=== PATIENT | male | born 1945 | race Caucasian/White ===

== ENCOUNTER 2021-09-20 07:59 | Inpatient (IN) | payer MEDICARE, BC ==
[~2021-09-20] VITALS: Ht 180.3 cm; Wt 68.9 kg
--- NOTE | 2021-09-20 08:05 | NUR ---
RECEIVED PT CAME BY ROMY FROM [facility] PT AWAKE AND FALLOW SIMPLE COMMAND PT TRANSFER FOR AOLC RESTING AND COMFORATBLE AT THIS TIME
--- NOTE | 2021-09-20 08:10 | NUR ---
BLOOD DROW FOR LAB AND X2 SNDE TO LAB
[2021-09-20 08:20] LABS: BASOPHILS % (AUTO) 0.2 % (0.0-2.0); EOSINOPHILS % (AUTO) 0.1 % (0.0-6.0); HEMATOCRIT 28 % (39-51); HEMOGLOBIN 9.1 g/dL (13.5-17.5); LYMPHOCYTES # (AUTO) 0.3 K/uL (0.8-4.8); LYMPHOCYTES % (AUTO) 3.8 % (20.0-44.0); MEAN CORPUSCULAR HGB CONC 33 g/dl (31.0-36.0); MEAN CORPUSCULAR VOLUME 86 fL (80-96); MONOCYTES # (AUTO) 0.1 K/uL (0.1-1.30); MONOCYTES % (AUTO) 1.4 % (2.0-12.0); NEUTROPHILS # (AUTO) 6.3 K/uL (1.8-8.9); NEUTROPHILS % (AUTO) 94.5 % (43.0-81.0); PLATELET COUNT (AUTO) 300 K/uL (150-450); RED BLOOD CELL COUNT(AUTO) 3.25 MIL/uL (4.5-6.0); WHITE BLOOD COUNT (AUTO) 6.7 K/uL (4.3-11.0)
[2021-09-20] MEDS ORDERED: IV NS 0.9% 1,000 ML BAG IV ONE (08:30)
[2021-09-20] MEDS ORDERED: PIPERACILLIN /TAZOBACTAM 3.375 G in IV D5W 50 ML IV ONE (08:30)
[2021-09-20] MEDS ORDERED: VANCOMYCIN 1 GM in IV D5W 250 ML IV ONE (08:30)
--- NOTE | 2021-09-20 08:30 | NUR ---
UNABLE TO INSRTED FC FR # BY BERTHA PAZ PT HX BPH
[2021-09-20 08:43] LABS: CALCIUM, SERUM 8.5 mg/dL (8.5-10.1); CARBON DIOXIDE 25 mmol/L (21-32); CHLORIDE 104 mmol/L (98-107); CREATININE 1.7 mg/dL (0.6-1.3); GLUCOSE 147 mg/dL (74-106); POTASSIUM 3.8 mmol/L (3.5-5.1); SODIUM SERUM 140 mmol/L (136-145); UREA NITROGEN, BLOOD 18 mg/dL (7-18)
[2021-09-20 08:47] LABS: ALANINE AMINOTRANSFERASE 8 U/L (12-78); ALKALINE PHOSPHATASE 109 U/L (46-116); ASPARTATE AMINOTRANSFERASE 11 U/L (15-37); BILIRUBIN,DIRECT 0.2 mg/dL (0.0-0.2); BILIRUBIN,TOTAL 0.5 mg/dL (0.2-1.0)
[2021-09-20 08:48] LABS: ALBUMIN 2.6 g/dL (3.4-5.0); TOTAL PROTEIN, SERUM 6.8 g/dL (6.4-8.2)
[2021-09-20] MEDS ORDERED: CARB1TAB39 PO (08:53)
[2021-09-20] MEDS ORDERED: METF-881 PO (08:53)
[2021-09-20] MEDS ORDERED: DONE10TA44 PO (08:53)
[2021-09-20] MEDS ORDERED: FENO134C PO (08:53)
[2021-09-20] MEDS ORDERED: ATOR40TA PO (08:53)
[2021-09-20] MEDS ORDERED: FLUT16SP NS (08:53)
[2021-09-20] MEDS ORDERED: CYAN-51 PO (08:53)
[2021-09-20] MEDS ORDERED: TAMS-12 PO (08:53)
[2021-09-20] MEDS ORDERED: ASPI-1169 PO (08:53)
[2021-09-20] MEDS ORDERED: SERT50TA PO (08:53)
[2021-09-20] MEDS ORDERED: FERR325T23 PO (08:53)
[2021-09-20] MEDS ORDERED: VITA1TAB56 PO (08:53)
--- NOTE | 2021-09-20 09:00 | NUR ---
DIVINE LAU SENT TO LAB
--- NOTE | 2021-09-20 09:10 | NUR ---
DR. DONALDSON AT BED SIDE FOR INSERTED CODA FC NOT SUCCESS
[2021-09-20] MEDS ORDERED: IV NS 0.9% 500 ML BAG IV ONE (09:30)
--- NOTE | 2021-09-20 09:59 | NUR ---
WATING FOR DISPO
--- NOTE | 2021-09-20 11:00 | NUR ---
PT VODING 60ML YELLOW COUDY COLOR SEND TO LAB
--- NOTE | 2021-09-20 11:30 | NUR ---
O SOB AT BED SIDE (LUKAS ) VISITING PT CONDITION UP DATE BY DR DONALDSON NO PAIN NO SOB
--- NOTE | 2021-09-20 12:02 | NUR ---
ROOM 325-1
[2021-09-20 12:07] LABS: BILIRUBIN,URINE NEGATIVE (NEGATIVE); COLOR,URINE YELLOW (YELLOW); LEUKOCYTE ESTERASE ,URINE MODERATE (NEGATIVE); NITRITE, URINE POSITIVE (NEGATIVE); PROTEIN,URINE 100 mg/dl (NEGATIVE); UGLUCOSE NEGATIVE (NEGATIVE); UROBILINOGEN,URINE 0.2 EU/dL (0.2)
--- NOTE | 2021-09-20 12:31 | NUR ---
HAND OFF TO VELIA RN PT VS STABLE ROOM 325-1 NO SOB OR DISTRESS FIO2 2LNC RESTIONG AT THIS TIME
[2021-09-20 12:43] LABS: BACTERIA,URINE Few /HPF (None Seen); RBC,URINE 51-80 /HPF (0-2); SQUAMOUS EPITHELIAL CELL,UR Rare /HPF (None Seen); WBC,URINE 81-100 /HPF (0-3)
--- NOTE | 2021-09-20 13:25 | NUR ---
RN NOTES RECEIVED PATIENT FROM ER. PATIENT STABLE ON 2L OF O2 VIA NC. NO S/S OF RESP DISTRESS OR SOB NOTED. A/O X2-3 WITH SOME CONFUSION AND SLOW SPEECH NOTED, NORMAL PER BASELINE. IV ACCESS L WRIST G#18 INTACT AND PATENT. ORIENTED PATIENT TO NEW ROOM AND IMPORTANCE OF USING CALL LIGHT FOR HELP. SAFETY PRECAUTIONS IN PLACE. CURRENTLY AWAITING NEW ORDERS. WILL CONTINUE TO MONITOR
[2021-09-20] MEDS ORDERED: ACETAMINOPHEN 325 MG TABLET PO PRN (16:00)
[2021-09-20] MEDS ORDERED: Z GUARD REMEDY 4 OZ OINT TP PRN (16:00)
[2021-09-20] MEDS ORDERED: MAGNESIUM HYDROXIDE 30 ML UDC PO PRN (16:00)
[2021-09-20] MEDS ORDERED: ONDANSETRON HCL/PF 4 MG/2 ML VIAL IVP PRN (16:00)
[2021-09-20] MEDS ORDERED: MAG HYDROX/AL HYDROX/SIMETH 30 ML UDC PO PRN (16:00)
[2021-09-20] MEDS ORDERED: ZOLPIDEM TARTRATE 5 MG TABLET PO PRN (16:00)
[2021-09-20] MEDS: IV 1/2NS 1000 ML 1,000 ML IV PRN (16:26)
[2021-09-20] MEDS ORDERED: *INSULIN REGULAR(HUMULIN R)HUM 100 UNIT/ML VIAL SQ PRN (16:30)
[2021-09-20] MEDS ORDERED: DEXTROSE 50%-WATER 50 ML DISP.SYRIN IV PRN (16:30)
[2021-09-20] MEDS: CEFTRIAXONE 1 G in IV D5W 50 ML IV SCH (17:30)
[2021-09-20] MEDS: BLOOD SUGAR DIAGNOSTIC 1 EACH STRIP VI SCH ×2 (17:56→22:08)
--- NOTE | 2021-09-20 18:49 | NUR ---
RN CLOSING NOTES PATIENT IN BED RESTING AT THIS TIME. SEEN BY DR PEREZ. ALL ORDERS CARRIED OUT AND NEEDS MET. CURRENTLY ON 2L OF O2 VIA NC WITH SAT OF 98%. DENIES PAIN AT THIS TIME. ON PROJECT ASSISTANT SHOWING NORMAL SR 69 BPM AT THIS TIME. PENDING BLOOD CULTURES. ON 03/31 NS RUNNING @ 75ML/HR @ L WRIST G#18. SAFETY PRECAUTIONS IN PLACE. WILL ENDORSE TO THE DEVELOPMENT EDUCATOR NURSE FOR ELIAS
--- NOTE | 2021-09-20 19:35 | NUR ---
PRESSED OR BLOWN GLASS WORKER OPENING NOTES RECEIVED PATIENT IN BED; AWAKE, ALERT AND ORIENTED X2-3. STABLE ON 2LPM OF O2 INHALATION VIA NASAL CANNULA. IN NO ACUTE DISTRESS NOTED. BREATHING EVENLY AND NONLABORED. ON TELEMETRY MONITORING WITH CURRENT READING OF SINUS RHYTHM HR 70 BPM. WITH IV ACCESS ON LEFT WRIST G#18; PATENT, INTACT AND FLUSHES WELL. ANTICIPATED ALL NEEDS. SAFETY PRECAUTIONS IMPLEMENTED: CALL LIGHT AND TABLE WITHIN EASY REACH, SIDE RAILS UP X2, BED IN LOWEST LOCKED POSITION. WILL CONTINUE TO MONITOR.
[2021-09-20 20:00] VITALS: BP 114/64
--- NOTE | 2021-09-20 23:30 | NUR ---
TRANSPORTATION DISPATCH MANAGER NOTE LAB REPORTED POSITIVE FOR GRAM NEGATIVE SHIRA ON GRAM STAIN; ALEXANDRA SANDERS NP MADE AWARE; NO NEW ORDER GIVEN.
[2021-09-21] VITALS: BP 110/41
[2021-09-21] MEDS: IV 1/2NS 1000 ML 1,000 ML IV PRN (05:38)
[2021-09-21] MEDS: BLOOD SUGAR DIAGNOSTIC 1 EACH STRIP VI SCH ×4 (05:55→21:40)
--- NOTE | 2021-09-21 07:00 | NUR ---
SALESPERSON HOSIERY CLOSING NOTES PATIENT IS IN BED; AWAKE, ALERT AND ORIENTED X2-3. STABLE ON 2LPM OF O2 INHALATION VIA NASAL CANNULA. IN NO ACUTE DISTRESS NOTED. BREATHING EVENLY AND NONLABORED. ON TELEMETRY MONITORING WITH CURRENT READING OF SINUS BRADYCARDIA HR 54 BPM. WITH IV ACCESS ON LEFT WRIST G#18; PATENT, INTACT AND FLUSHES WELL. SAFETY PRECAUTIONS IN PLACE: CALL LIGHT AND TABLE WITHIN EASY REACH, SIDE RAILS UP X2, BED IN LOWEST LOCKED POSITION. ENDORSED TO MORNING SHIFT FOR ELIAS.
[2021-09-21 07:03] LABS: BASOPHILS % (AUTO) 0.2 % (0.0-2.0); EOSINOPHILS % (AUTO) 0.4 % (0.0-6.0); HEMATOCRIT 24 % (39-51); HEMOGLOBIN 7.9 g/dL (13.5-17.5); LYMPHOCYTES # (AUTO) 0.4 K/uL (0.8-4.8); LYMPHOCYTES % (AUTO) 4.4 % (20.0-44.0); MEAN CORPUSCULAR HGB CONC 33 g/dl (31.0-36.0); MEAN CORPUSCULAR VOLUME 86 fL (80-96); MONOCYTES # (AUTO) 0.6 K/uL (0.1-1.30); MONOCYTES % (AUTO) 6.8 % (2.0-12.0); NEUTROPHILS # (AUTO) 8.5 K/uL (1.8-8.9); NEUTROPHILS % (AUTO) 88.2 % (43.0-81.0); PLATELET COUNT (AUTO) 217 K/uL (150-450); RED BLOOD CELL COUNT(AUTO) 2.79 MIL/uL (4.5-6.0); WHITE BLOOD COUNT (AUTO) 9.6 K/uL (4.3-11.0)
[2021-09-21 07:19] LABS: CARBON DIOXIDE 23 mmol/L (21-32); CHLORIDE 106 mmol/L (98-107); CREATININE 1.6 mg/dL (0.6-1.3); GLUCOSE 92 mg/dL (74-106); MAGNESIUM 1.8 mg/dL (1.8-2.4); PHOSPHORUS 3.2 mg/dL (2.5-4.9); POTASSIUM 3.5 mmol/L (3.5-5.1); SODIUM SERUM 140 mmol/L (136-145); UREA NITROGEN, BLOOD 18 mg/dL (7-18)
--- NOTE | 2021-09-21 07:30 | NUR ---
RN OPENING NOTE PATIENT AWAKE IN BED, ORIENTED X 2, ON SEMI-MORENO'S POSITION. WITH O2 VIA NASAL CANNULA AT 2 L/MIN, O2 SAT AT 99%. SINUS RHYTHM ON ABALONE PROCESSOR. WITH LEFT WRIST IV LINE GAUGE 18 INFUSING WITH 1/2 NS AT 75 ML/HR. CLEAR BREATH SOUNDS, NOT IN ANY FORM OF DISTRESS, DENIES PAIN. BED IS LOCKED IN LOWEST POSITION, 3 SIDE RAILS UP, CALL LIGHT WITHIN REACH. WILL CONTINUE TO MONITOR THROUGHOUT SHIFT.
[2021-09-21 08:00] VITALS: BP 105/53
[2021-09-21] MEDS: PANTOPRAZOLE 40 MG TABLET.DR PO SCH (09:00)
--- NOTE | 2021-09-21 10:00 | NUR ---
RN NOTE PATIENT PULLED OUT IV LINE. MIDLINE REQUESTED AFTER 2 IV INSERTION ATTEMPTS.
[2021-09-21 15:13] LABS: IRON, SERUM 8 ug/dl (50-175); TOTAL IRON BINDING CAPACITY 135 ug/dl (250-450)
[2021-09-21] MEDS: CEFTRIAXONE 1 G in IV D5W 50 ML IV SCH (16:39)
--- NOTE | 2021-09-21 19:08 | NUR ---
RN CLOSING NOTE PATIENT IS RESTING COMFORTABLY IN BED. PATIENT IS STABLE THROUGHOUT SHIFT AND NOT IN ANY FORM OF DISTRESS. DENIES PAIN. WITH MIDLINE ON RIGHT UPPER ARM, INTACT AND PATENT. BED IS LOCKED IN LOWEST POSITION, 3 SIDE RAILS UP, CALL LIGHT WITHIN REACH. WILL ENDORSE TO LABORER TAN HOUSE NURSE.
--- NOTE | 2021-09-21 19:48 | NUR ---
MS RN OPENING NOTES RECEIVED PT LYING IN BED WITH EYES CLOSED, EASY TO AROUSE. A/O X2. BREATHING EVEN AND NON-LABORED ON ROOM AIR. DENIES PAIN OR DISCOMFORT AT THIS TIME. HAS RIGHT UPPER ARM MIDLINE #18G WITH 1/2 NS RUNNING AT 75 ML/HR. NO S/S OF INFILTRATION NOTED. SAFETY PRECAUTIONS IN PLACE. WILL CONTINUE PLAN OF CARE.
[2021-09-21 20:00] VITALS: BP 96/53
--- NOTE | 2021-09-21 21:37 | NUR ---
MS RN NOTES BS 92. NO INSULIN COVERAGE GIVEN.
--- NOTE | 2021-09-21 22:31 | NUR ---
MS PAZ NOTES BLADDER SCAN DONE. 120 CC URINE RETENTION Addendum: 09/22/21 at 0627 by August ANA LUISA PAZ 2ND BLADDER SCAN DONE. 257 URINE RETENTION
[2021-09-22] MEDS: IV 1/2NS 1000 ML 1,000 ML IV PRN (02:06)
--- NOTE | 2021-09-22 06:49 | NUR ---
MS RN NOTES BS 86. NO INSULIN COVERAGE GIVEN.
[2021-09-22] MEDS: INSULIN REGULAR, HUMAN 100 UNIT/ML 3 ML VIAL SQ PRN ×3 (06:50→17:59)
[2021-09-22] MEDS: BLOOD SUGAR DIAGNOSTIC 1 EACH STRIP VI SCH ×3 (06:50→17:57)
--- NOTE | 2021-09-22 07:18 | NUR ---
MS RN CLOSING NOTES PT LYING IN BED AWAKE. A/O X2 WITH PERIODS OF DISORGANIZED THOUGHTS. NO SOB OR NOTED. HAS O2 AT 2LPM VIA NASAL CANULA. NO C/O PAIN OR DISCOMFORT. AFEBRILE. HAS RIGHT UPPER ARM MIDLINE #18G WITH 1/2 NS RUNNING AT 75 ML/HR. INTACT, PATENT AND FLUSHING. SAFETY PRECAUTIONS IN PLACE: BED LOW AND LOCKED, SIDE RAILS UP X3, CALL LIGHT WITHIN REACH.
--- NOTE | 2021-09-22 07:44 | NUR ---
RN OPENING NOTE RECEIVED PT IN BED, CONFUSED, A/O X PERSON PLACE ONLY. BREATHING EVEN AND NON-LABORED ON ROOM AIR. DENIES PAIN OR DISCOMFORT AT THIS TIME. HAS RIGHT UPPER ARM MIDLINE #18G WITH 1/2 NS RUNNING AT 75 ML/HR. NO S/S OF INFILTRATION NOTED. SAFETY PRECAUTIONS IN PLACE. WILL CONTINUE PLAN OF CARE. MONITOR / ASSIST
[2021-09-22] MEDS: PANTOPRAZOLE 40 MG TABLET.DR PO SCH (07:55)
[2021-09-22 08:00] VITALS: BP 140/71
[2021-09-22] MEDS ORDERED: LEVO500T90 PO (14:39)
[2021-09-22] MEDS ORDERED: IV NS 0.9% 500 ML IV ONE (15:00)
[2021-09-22 15:32] LABS: BASOPHILS % (AUTO) 0.1 % (0.0-2.0); EOSINOPHILS % (AUTO) 0.9 % (0.0-6.0); HEMATOCRIT 26 % (39-51); HEMOGLOBIN 8.6 g/dL (13.5-17.5); LYMPHOCYTES # (AUTO) 0.4 K/uL (0.8-4.8); LYMPHOCYTES % (AUTO) 4.2 % (20.0-44.0); MEAN CORPUSCULAR HGB CONC 33 g/dl (31.0-36.0); MEAN CORPUSCULAR VOLUME 86 fL (80-96); MONOCYTES # (AUTO) 0.5 K/uL (0.1-1.30); MONOCYTES % (AUTO) 6.5 % (2.0-12.0); NEUTROPHILS # (AUTO) 7.4 K/uL (1.8-8.9); NEUTROPHILS % (AUTO) 88.3 % (43.0-81.0); PLATELET COUNT (AUTO) 269 K/uL (150-450); RED BLOOD CELL COUNT(AUTO) 3.06 MIL/uL (4.5-6.0); WHITE BLOOD COUNT (AUTO) 8.4 K/uL (4.3-11.0)
--- NOTE | 2021-09-22 15:54 | NUR ---
RN NOTE- BLADDER SCAN 100 NOTED ON SCAN. PT IC SEVERAL TIMES TODAY
[2021-09-22 16:04] LABS: CALCIUM, SERUM 8.2 mg/dL (8.5-10.1); CARBON DIOXIDE 24 mmol/L (21-32); CHLORIDE 109 mmol/L (98-107); CREATININE 1.4 mg/dL (0.6-1.3); GLUCOSE 137 mg/dL (74-106); MAGNESIUM 2.1 mg/dL (1.8-2.4); PHOSPHORUS 2.8 mg/dL (2.5-4.9); POTASSIUM 3.2 mmol/L (3.5-5.1); SODIUM SERUM 143 mmol/L (136-145); UREA NITROGEN, BLOOD 16 mg/dL (7-18)
[2021-09-22] MEDS: CEFTRIAXONE 1 G in IV D5W 50 ML IV SCH (16:30)
[2021-09-22] MEDS ORDERED: POTASSIUM CL. PREMIX PERIPHER. 200 ML ONE (22:04)
== END 2021-09-22 20:00 | DRG 871 ==
LOC: ER 08:05 → TELE 12:16 → MED 09-21 19:07
PROVIDERS: ADMIT Student in an Organized Health Care Education/Training Program; ATTEND Nurse Practitioner Acute Care
PROC: 05H933Z Insertion of Infusion Device into Right Brachial Vein, Percutaneous Approach (ICD-10-PCS; principal; 2021-09-21)
DX: A41.51 Sepsis due to Escherichia coli [E. coli] (principal); N17.0 Acute kidney failure with tubular necrosis; N39.0 Urinary tract infection, site not specified; E44.0 Moderate protein-calorie malnutrition; N13.6 Pyonephrosis; Z66 Do not resuscitate; Z20.822 Contact with and (suspected) exposure to COVID-19; G20 Parkinson's disease; N40.0 Benign prostatic hyperplasia without lower urinary tract symptoms; F02.80 Dementia in other diseases classified elsewhere, unspecified severity, without behavioral disturbance, psychotic disturbance, mood disturbance, and anxiety; E78.00 Pure hypercholesterolemia, unspecified; E11.9 Type 2 diabetes mellitus without complications; Z85.46 Personal history of malignant neoplasm of prostate; G89.29 Other chronic pain; Z88.8 Allergy status to other drugs, medicaments and biological substances; Z79.84 Long term (current) use of oral hypoglycemic drugs; Z79.82 Long term (current) use of aspirin; Z79.899 Other long term (current) drug therapy; E88.09 Other disorders of plasma-protein metabolism, not elsewhere classified; N18.9 Chronic kidney disease, unspecified; E78.5 Hyperlipidemia, unspecified; B96.89 Other specified bacterial agents as the cause of diseases classified elsewhere; R33.9 Retention of urine, unspecified; D63.8 Anemia in other chronic diseases classified elsewhere; W19.XXXA Unspecified fall, initial encounter; Y92.9 Unspecified place or not applicable
CPT/HCPCS: 36410; 36415; 71045-TC; 76770-TC; 80048-TC; 80076-TC; 81001; 82962-TC; 83540-TC; 83605-TC; 83735-TC; 83880; 84100-TC; 84484-TC; 85025-TC; 87040-TC; 87081-TC; 87086-TC; 87186-TC; 97116-TC; 97530-TC; C9803; G0378; J0696; J1815; J2543; J3370; J3480; J3490; J7030; J7040; J7050; J7060

== ENCOUNTER 2021-11-17 12:45 | Inpatient (IN) | payer MEDICARE, BC ==
[~2021-11-17] VITALS: Ht 170.2 cm; Wt 62.1 kg
[~2021-11-17 12:45] MED LIST: ASPI-1169 PO; ATOR40TA PO; CARB1TAB39 PO; CYAN-51 PO; DONE10TA44 PO; FENO134C PO; FERR325T23 PO; FLUT16SP; LEVO500T90 PO; METF-881 PO; SERT50TA PO; TAMS-12 PO; VITA1TAB56 PO
--- NOTE | 2021-11-17 12:53 | NUR ---
[facility] PT HAS FEVER TODAY, TYELNOL 650MG GIVEN UNION ORGANIZER, CONCERNED ABOUT UTI, NO URINE OUTPUT FOR 20HOURS. PT IS A&OX2. WARM ABLNKET PROVIDED FOR COMFORT. AWAITING MG OUTPUT.
[2021-11-17] MEDS ORDERED: IV NS 0.9% 1,000 ML BAG IV ONE (14:30)
--- NOTE | 2021-11-17 14:32 | NUR ---
LUKAS () [phone] TON (DAUGHTER) [phone]
--- NOTE | 2021-11-17 14:55 | NUR ---
IV ESTABLISHED R HAND 20G. LABS DRAWN AND COLLECTED AT BEDSIDE.
--- NOTE | 2021-11-17 15:17 | NUR ---
URINE OCLLECTED AND SENT
[2021-11-17 15:21] LABS: BASOPHILS % (AUTO) 0.1 % (0.0-2.0); HEMATOCRIT 27 % (39-51); HEMOGLOBIN 8.6 g/dL (13.5-17.5); LYMPHOCYTES # (AUTO) 0.8 K/uL (0.8-4.8); LYMPHOCYTES % (AUTO) 3.7 % (20.0-44.0); MEAN CORPUSCULAR HGB CONC 32 g/dl (31.0-36.0); MEAN CORPUSCULAR VOLUME 83 fL (80-96); MONOCYTES % (AUTO) 4.5 % (2.0-12.0); NEUTROPHILS # (AUTO) 20.6 K/uL (1.8-8.9); NEUTROPHILS % (AUTO) 91.7 % (43.0-81.0); PLATELET COUNT (AUTO) 461 K/uL (150-450); RED BLOOD CELL COUNT(AUTO) 3.22 MIL/uL (4.5-6.0); WHITE BLOOD COUNT (AUTO) 22.5 K/uL (4.3-11.0)
[2021-11-17 15:31] LABS: CALCIUM, SERUM 8.5 mg/dL (8.5-10.1); CARBON DIOXIDE 28 mmol/L (21-32); CHLORIDE 104 mmol/L (98-107); CREATININE 1.5 mg/dL (0.6-1.3); GLUCOSE 178 mg/dL (74-106); POTASSIUM 4.2 mmol/L (3.5-5.1); SODIUM SERUM 142 mmol/L (136-145); UREA NITROGEN, BLOOD 24 mg/dL (7-18)
[2021-11-17 15:37] LABS: ALANINE AMINOTRANSFERASE 9 U/L (12-78); ALBUMIN 2.4 g/dL (3.4-5.0); ALKALINE PHOSPHATASE 90 U/L (46-116); ASPARTATE AMINOTRANSFERASE 23 U/L (15-37); BILIRUBIN,DIRECT 0.2 mg/dL (0.0-0.2); BILIRUBIN,TOTAL 0.5 mg/dL (0.2-1.0); LIPASE 117 U/L (73-393)
[2021-11-17] MEDS ORDERED: VANCOMYCIN 1 GM in IV D5W 250 ML IV ONE (16:00)
[2021-11-17] MEDS ORDERED: CEFEPIME 1 GM in IV D5W 50 ML IV ONE (16:00)
[2021-11-17] MEDS ORDERED: PHEN26CR2 RC (16:09)
[2021-11-17] MEDS ORDERED: POLY17PO4 PO (16:09)
[2021-11-17] MEDS ORDERED: CARB1TAB31 PO (16:09)
[2021-11-17] MEDS ORDERED: IPRA3AMP23 IH ×2 (16:09)
[2021-11-17] MEDS ORDERED: ACET-868 PO (16:09)
[2021-11-17] MEDS ORDERED: ERGO500093 PO (16:09)
--- NOTE | 2021-11-17 16:31 | NUR ---
ERASTO RILEY COLLECTED AND SENT
[2021-11-17 16:58] LABS: BILIRUBIN,URINE NEGATIVE (NEGATIVE); COLOR,URINE YELLOW (YELLOW); LEUKOCYTE ESTERASE ,URINE SMALL (NEGATIVE); NITRITE, URINE POSITIVE (NEGATIVE); PROTEIN,URINE TRACE mg/dl (NEGATIVE); UGLUCOSE NEGATIVE (NEGATIVE); UROBILINOGEN,URINE 0.2 EU/dL (0.2)
[2021-11-17] MEDS ORDERED: Z GUARD REMEDY 4 OZ OINT TP PRN (17:00)
[2021-11-17] MEDS ORDERED: DEXTROSE 50%-WATER 50 ML DISP.SYRIN IV PRN (17:00)
[2021-11-17] MEDS ORDERED: ONDANSETRON HCL/PF 4 MG/2 ML VIAL IVP PRN (17:00)
[2021-11-17] MEDS ORDERED: ACETAMINOPHEN 325 MG TABLET PO PRN (17:00)
[2021-11-17] MEDS: CARBIDOPA/LEVODOPA 10/100 MG 1 UDTAB PO SCH (17:00)
[2021-11-17] MEDS ORDERED: ALBUTEROL FS 2.5 MG/0.5 ML VIAL.NEB NEB PRN (17:00)
--- NOTE | 2021-11-17 17:08 | NUR ---
PT TAKEN TO [facility]
[2021-11-17] MEDS ORDERED: IV NS 0.9% 250 ML IV ONE (17:10)
[2021-11-17] MEDS ORDERED: IOHEXOL-350 100 ML VIAL IV ONE (17:10)
--- NOTE | 2021-11-17 17:25 | NUR ---
PT BACK FROM [facility]
[2021-11-17 17:33] LABS: BACTERIA,URINE 2+ /HPF (None Seen); RBC,URINE 21-50 /HPF (0-2); YEAST,URINE Moderate /HPF (None Seen)
[2021-11-17] MEDS ORDERED: IPRATROPIUM/ALBUTEROL INHALER IH SCH (18:00)
--- NOTE | 2021-11-17 18:01 | NUR ---
MARV DELEON MADE AWARE RE: MD ORDER FOR MID LINE.
--- NOTE | 2021-11-17 18:16 | NUR ---
Shaneka robison in [facility] - 11/17/21 at 1829 by [place] 16FR NG TUBE INSERTED, 53', CONFIRMED BY AUSCULTATION AND ASPIRATION.
--- NOTE | 2021-11-17 18:16 | NUR ---
16FR NG TUBE INSERTED, 48', CONFIRMED BY AUSCULTATION AND ASPIRATION.
--- NOTE | 2021-11-17 18:22 | NUR ---
MIDLINE NURSE AT BEDSIDE
[2021-11-17] MEDS: BLOOD SUGAR DIAGNOSTIC 1 EACH STRIP IN SCH ×2 (18:40→23:52)
[2021-11-17] MEDS: IV D5/0.45 NACL 1,000 ML IV SCH (18:40)
[2021-11-17] MEDS: INSULIN REGULAR, HUMAN 100 UNIT/ML 3 ML VIAL SQ PRN (18:43)
--- NOTE | 2021-11-17 18:45 | NUR ---
ULTRASOUND AT BEDSIDE
--- NOTE | 2021-11-17 18:58 | NUR ---
BED GIVEN 310-1 AFTER 1999
--- NOTE | 2021-11-17 19:19 | NUR ---
TROPONIN 175, MD AWARE
--- NOTE | 2021-11-17 19:50 | NUR ---
DR VALENTÍN RUSSELL PAGED PER DR SHORT.
--- NOTE | 2021-11-17 20:00 | NUR ---
[facility] CALLED FOR TRANSFER REQUEST. PER NAEL NO BED CAPACITY.
--- NOTE | 2021-11-17 21:46 | NUR ---
CALLED TO GIVE REPORT RN NOT READY.
[2021-11-17] MEDS: TAMSULOSIN 0.4 MG CAP.SR.24H PO SCH (22:00)
[2021-11-17] MEDS: DONEPEZIL 5 MG TABLET PO SCH (22:00)
[2021-11-17] MEDS: CARBIDOPA/LEVA CR 25/100MG 1 TAB.SA PO SCH (22:00)
[2021-11-17] MEDS: ATORVASTATIN 40 MG TABLET PO SCH (22:00)
--- NOTE | 2021-11-17 22:30 | NUR ---
RN NOTE RECEIVED 76 Y/O M PATIENT FROM ER [facility], A/O X1, ON RA TOLERATING WELL, V/S TAKEN AND RECORDED, NOTED WITH IV ACCESS ON L AC #18 G INFILTRATED, R WRIST, AND JEANA MIDLINE #18g RUNNING D5 1/2 NS AT 60 ML/HR. WITH SACROCOCCYX AND PERINEAL AREA WOUND, PICTURES TAKEN AND PLACED ON CHART, KEPT DRY AND CLEAN, PLACED PT IN TELEMONITORING, PER COLOR CONSULTANT, NOTED PT INC OF CONFUSION, TOOK OF HIS NGT TUBE AND RE INSERTED A NEW ONE, INFORMED ALEXANDRA SANDERS ON BEDSIDE, ORDERED TO PUT ON B WRIST RESTRAINT, ORIENTED PT TO THE UNIT. INITIAL PHYSICAL AND ASSESSMENT DONE. BED IN LOWEST AND LOCKED POSITION, CALL LIGHT WITHIN REACH, WILL CONTINUE TO MONITOR CLOSELY.
[2021-11-17 22:40] VITALS: BP 105/61
--- NOTE | 2021-11-17 22:40 | NUR ---
Patient was transferred to [facility] via ACLS protocol.
[2021-11-17] MEDS ORDERED: PIPERACILLIN /TAZOBACTAM 3.375 G VIAL IV ONE (23:51)
[2021-11-17] MEDS: ZOSYN IVPB 3.375 G in IV D5W 50ml IV SCH (23:52)
[2021-11-18] VITALS: BP 105/61
--- NOTE | 2021-11-18 | NUR ---
RN NOTE BS CHECKED AT 167 MG/DL, NO COVERAGE GIVEN , PATIENT ON NPO STATUS. ALL PO MEDS NOT ADMINISTERED WELL. CN MADE AWARE.
[2021-11-18 04:00] VITALS: BP 131/68
[2021-11-18] MEDS ORDERED: PIPERACILLIN /TAZOBACTAM 3.375 G VIAL IV ONE (04:46)
[2021-11-18] MEDS: ZOSYN IVPB 3.375 G in IV D5W 50ml IV SCH (04:48)
[2021-11-18] MEDS: IV D5/0.45 NACL 1,000 ML IV SCH (04:50)
--- NOTE | 2021-11-18 06:46 | NUR ---
RN CLOSING NOTE PATIENT REMAIN IN BED SLEEPING BUT EASILY AROUSABLE TO TOUCH AND VOICE, A/O X1. ON RA TOLERATING WELL. IV ACCESS ON JOSE MIGUEL MIDLINE AND L WRIST INTACT AND PATENT RUNNING D5 1/2 NS AT 60 ML/HR. CONNECTED ON NGT TO LOW INTERMITTENT SUCTION, KEPT DRY AND CLEAN, NPO MAINTAINED THROUGHOUT THE SHIFT. ALL NEEDS ATTENDED, CALL LIGHT WITHIN REACH, BED IN LOWEST AND LOCKED POSITION, WILL ENDORSE TO AM SHIFT NURSE.
[2021-11-18 07:00] LABS: BASOPHILS % (AUTO) 0.1 % (0.0-2.0); HEMATOCRIT 25 % (39-51); HEMOGLOBIN 8.2 g/dL (13.5-17.5); LYMPHOCYTES # (AUTO) 0.6 K/uL (0.8-4.8); LYMPHOCYTES % (AUTO) 4.3 % (20.0-44.0); MEAN CORPUSCULAR HGB CONC 33 g/dl (31.0-36.0); MEAN CORPUSCULAR VOLUME 83 fL (80-96); MONOCYTES # (AUTO) 0.9 K/uL (0.1-1.30); MONOCYTES % (AUTO) 6.5 % (2.0-12.0); NEUTROPHILS # (AUTO) 12.6 K/uL (1.8-8.9); NEUTROPHILS % (AUTO) 89.1 % (43.0-81.0); PLATELET COUNT (AUTO) 395 K/uL (150-450); RED BLOOD CELL COUNT(AUTO) 2.97 MIL/uL (4.5-6.0); WHITE BLOOD COUNT (AUTO) 14.2 K/uL (4.3-11.0)
[2021-11-18] MEDS: ALBUTEROL HALF STRENGTH 1.25 MG/3 ML VIAL.NEB NEB SCH ×3 (07:13→20:06)
[2021-11-18] MEDS: IPRATROPIUM NEB FS 0.5 MG/2.5 ML AMPUL.NEB NEB SCH ×3 (07:13→20:06)
--- NOTE | 2021-11-18 07:15 | NUR ---
RN OPENING NOTES RECEIVED PATIENT IN BED SLEEPING BUT EASILY AROUSABLE TO TOUCH AND VOICE, A/O X1. ON ROOM AIR TOLERATING WELL. ON TELE MONITOR READING SR WITH HR OF 98. BREATHING UNLABORED. NO SOB OR ANY RESPIRATORY DISTRESS NOTED AT THE TIME. IV ACCESS ON JOSE MIGUEL MIDLINE AND R WRIST INTACT AND PATENT INFUSING D5 1/2 NS AT 60 ML/HR. NO SIGNS OF INFILTRATION NOTED ON SITE. CONNECTED ON NGT TO LOW INTERMITTENT SUCTION, ON NPO STATUS. ON BILATERAL SOFT WRISTS RESTRAINTS, NO CIRCULATION COMPROMISE, NO SKIN INTEGRITY COMPROMISE. WILL CONTINUE TO REASSESS ACCORDINGLY. ALL ALL SAFETY MEASURES IN PLACE. CALL LIGHT WITHIN REACH, BED IN LOWEST AND LOCKED POSITION, SIDE RAILS UP X 2. WILL CONTINUE TO MONITOR AND REASSESS FOR ANY CHANGES DURING SHIFT.
[2021-11-18 08:00] VITALS: BP 124/61
--- NOTE | 2021-11-18 08:27 | NUR ---
RN NOTE BLOOD SUGAR CHECKED AT 185 MG/DL, NO COVERAGE GIVEN , PATIENT ON NPO STATUS. CHARGE NURSE MADE AWARE.
[2021-11-18] MEDS: BLOOD SUGAR DIAGNOSTIC 1 EACH STRIP IN SCH ×4 (08:28→22:00)
[2021-11-18] MEDS: CARBIDOPA/LEVODOPA 10/100 MG 1 UDTAB PO SCH ×3 (08:36→17:00)
[2021-11-18] MEDS: ASPIRIN 81 MG TAB.CHEW PO SCH (08:36)
[2021-11-18] MEDS: SERTRALINE HCL 50 MG TABLET PO SCH (08:36)
[2021-11-18] MEDS: FLUTICASONE PROPIONATE 16 GM BOTTLE NS SCH (08:40)
[2021-11-18 08:58] LABS: ALANINE AMINOTRANSFERASE 15 U/L (12-78); ALKALINE PHOSPHATASE 106 U/L (46-116); ASPARTATE AMINOTRANSFERASE 36 U/L (15-37); BILIRUBIN,TOTAL 0.5 mg/dL (0.2-1.0); CALCIUM, SERUM 8.2 mg/dL (8.5-10.1); CARBON DIOXIDE 25 mmol/L (21-32); CHLORIDE 104 mmol/L (98-107); CREATININE 1.6 mg/dL (0.6-1.3); GLUCOSE 195 mg/dL (74-106); MAGNESIUM 1.9 mg/dL (1.8-2.4); PHOSPHORUS 2.6 mg/dL (2.5-4.9); POTASSIUM 3.5 mmol/L (3.5-5.1); SODIUM SERUM 140 mmol/L (136-145); TOTAL PROTEIN, SERUM 6.5 g/dL (6.4-8.2); UREA NITROGEN, BLOOD 28 mg/dL (7-18)
[2021-11-18] MEDS ORDERED: FERROUS SULFATE (325 MG) 325 MG/TAB TABLET PO SCH (09:00)
[2021-11-18] MEDS ORDERED: Medication Not On Formulary EA (Fenofibrate,Micronized (Fenofibrate) 134 MG) PO SCH (09:00)
[2021-11-18] MEDS ORDERED: METFORMIN XR 500 MG TAB.SR.24H PO SCH (09:00)
[2021-11-18 09:18] LABS: ALBUMIN 2.1 g/dL (3.4-5.0)
[2021-11-18 12:00] VITALS: BP 129/59
--- NOTE | 2021-11-18 12:28 | NUR ---
RN NOTE BLOOD SUGAR CHECKED AT 177 MG/DL, NO COVERAGE GIVEN , PATIENT ON NPO STATUS. CHARGE NURSE MADE AWARE.
[2021-11-18] MEDS: PIPERACILLIN /TAZOBACTAM 3.375 G in IV D5W 100 ML IV SCH ×2 (12:37→21:38)
[2021-11-18 16:00] VITALS: BP 118/58
--- NOTE | 2021-11-18 17:03 | NUR ---
RN NOTE BLOOD SUGAR CHECKED-156 MG/DL, NO COVERAGE GIVEN , PATIENT ON NPO STATUS. CHARGE NURSE MADE AWARE.
--- NOTE | 2021-11-18 18:52 | NUR ---
RN CLOSING NOTES NO SIGNIFICANT CHANGES ON PATIENT CONDITION DURING SHIFT. PATIENT IN BED RESTING BUT EASILY AROUSABLE TO TOUCH AND VOICE, A/O X1. ON ROOM AIR TOLERATING WELL. BREATHING UNLABORED. NO SOB OR ANY RESPIRATORY DISTRESS NOTED AT THE TIME. IV ACCESS ON JEANA MIDLINE AND R WRIST INTACT AND PATENT INFUSING D5 1/2 NS AT 60 ML/HR. NO SIGNS OF INFILTRATION NOTED ON SITE. CONNECTED ON NGT TO LOW INTERMITTENT SUCTION, REMAINS ON NPO STATUS. ON BILATERAL SOFT WRISTS RESTRAINTS, NO CIRCULATION COMPROMISE, NO SKIN INTEGRITY COMPROMISE. KEPT PATIENT CLEAN DRY AND COMFORTABLE. ALL NEEDS ANTICIPATED. ALL ALL SAFETY MEASURES IN PLACE. CALL LIGHT WITHIN REACH, BED IN LOWEST AND LOCKED POSITION, SIDE RAILS UP X 2. WILL ENDORSE TO ELECTRIC BLANKET PACKER NURSE FOR CONTINUITY OF CARE.
--- NOTE | 2021-11-18 19:05 | NUR ---
RN OPENING NOTES RECEIVED PATIENT ON BED, A/O X 1-2. ON ROOM AIR SATING AT 95%. RESPIRATORY EVEN AND UNLABORED. NO SOB NOTED. PATIENT WITH JEANA MIDLINE LINE AND RIGHT WRIST PERIPHERAL LINE, FLUSHED WITH NS, NO S/S OF INFILTRATION NOTED. RUNNING WITH IVF D5 1/2 NS @60ML/HR. WITH NGT CONNECTED TO LOW INTERMITTENT SUCTION. WITH BILATERAL SOFT WRIST RESTRAINT REASSESSED Q2HR FOR CIRCULATION. ALL SAFETY PRECAUTION PROVIDED. REPOSITION Q2HRS. BED IN LOWEST POSITION. LOCKED. BED ALARM ARMED. CONTINUE TO MONITOR.
[2021-11-18 20:00] VITALS: BP 112/57
--- NOTE | 2021-11-18 20:30 | NUR ---
RN NOTES REPORT GIVEN TO BRANDI PRIEST FOR CONTINUITY OF CARE.
[2021-11-18] MEDS: HEPARIN SODIUM, PORCINE 5000 UNITS/1 ML VIAL SQ SCH (21:37)
[2021-11-18] MEDS: DONEPEZIL 5 MG TABLET PO SCH (21:40)
[2021-11-18] MEDS: TAMSULOSIN 0.4 MG CAP.SR.24H PO SCH (21:40)
[2021-11-18] MEDS: ATORVASTATIN 40 MG TABLET PO SCH (21:41)
[2021-11-18] MEDS: CARBIDOPA/LEVA CR 25/100MG 1 TAB.SA PO SCH (21:41)
[2021-11-18] MEDS: INSULIN REGULAR, HUMAN 100 UNIT/ML 3 ML VIAL SQ PRN (23:29)
--- NOTE | 2021-11-18 23:29 | NUR ---
RN NOTES: PT'S BLOOD SUGAR 179. NO COVERAGE GIVEN DUE STRICT NPO. NO S/S OF HYPER/HYPOGLYCEMIA. WILL CONTINUE TO MONITOR
[2021-11-19] VITALS: BP 107/74
[2021-11-19] MEDS: IPRATROPIUM NEB FS 0.5 MG/2.5 ML AMPUL.NEB NEB SCH ×4 (02:55→19:48)
[2021-11-19] MEDS: ALBUTEROL HALF STRENGTH 1.25 MG/3 ML VIAL.NEB NEB SCH ×4 (02:55→19:48)
[2021-11-19] MEDS: IV D5/0.45 NACL 1,000 ML IV SCH (03:13)
[2021-11-19 04:00] VITALS: BP 111/71
[2021-11-19] MEDS: PIPERACILLIN /TAZOBACTAM 3.375 G in IV D5W 100 ML IV SCH ×3 (04:53→21:48)
[2021-11-19 06:13] LABS: HEMATOCRIT 21 % (39-51); LYMPHOCYTES # (AUTO) 0.5 K/uL (0.8-4.8); LYMPHOCYTES % (AUTO) 5.2 % (20.0-44.0); MEAN CORPUSCULAR HGB CONC 34 g/dl (31.0-36.0); MEAN CORPUSCULAR VOLUME 81 fL (80-96); MONOCYTES # (AUTO) 0.6 K/uL (0.1-1.30); MONOCYTES % (AUTO) 6.2 % (2.0-12.0); NEUTROPHILS # (AUTO) 9.2 K/uL (1.8-8.9); NEUTROPHILS % (AUTO) 88.6 % (43.0-81.0); PLATELET COUNT (AUTO) 402 K/uL (150-450); RED BLOOD CELL COUNT(AUTO) 2.56 MIL/uL (4.5-6.0); WHITE BLOOD COUNT (AUTO) 10.4 K/uL (4.3-11.0)
--- NOTE | 2021-11-19 06:35 | NUR ---
RN CLOSING NOTES PATIENT ON BED, A/O X 1-2. ON ROOM AIR AND PT TOLERATED WELL. IV ACCESS ON JEANA MIDLINE AND RIGHT WRIST INTACT AND PATENT. NO S/S OF INFILTRATION NOTED. RUNNING D5 1/2 NS @60ML/HR. NGT CONNECTED TO LOW INTERMITTENT SUCTION. NO FACIAL GRIMACING NOTED. NO ACUTE DISTRESS. ON BILATERAL SOFT WRIST RESTRAINT, CHECKED Q2HR FOR CIRCULATION. ALL DUE MEDS GIVEN ORDERED. ALL SAFETY PRECAUTION PROVIDED. BED IN LOWEST POSITION AND LOCKED. BED ALARM ON. SIDE RAILS UP X3, PLACE CALL LIHT WITH IN REACH. WILL ENDORSE TO MORNING SHIFT NURSE
[2021-11-19 07:04] LABS: CALCIUM, SERUM 7.7 mg/dL (8.5-10.1); CARBON DIOXIDE 23 mmol/L (21-32); CHLORIDE 105 mmol/L (98-107); CREATININE 1.9 mg/dL (0.6-1.3); GLUCOSE 222 mg/dL (74-106); PHOSPHORUS 2.4 mg/dL (2.5-4.9); POTASSIUM 3.1 mmol/L (3.5-5.1); SODIUM SERUM 140 mmol/L (136-145); UREA NITROGEN, BLOOD 49 mg/dL (7-18)
--- NOTE | 2021-11-19 07:46 | NUR ---
RN NOTE PT RECEIVED ASLEEP IN BED, RESPONSIVE TO STIMULI. IN ROOM AIR. NOT IN RESPI DISTRESS. PT NOTED WITH BILATERAL SOFT WRIST RESTRAINTS, NO SS OF CIRCULATORY IMPAIRMENT. CONT IN NPO STATUS. WITH NGT LOW INTERMITTENT SUCTION. PT WITH IV ACCESS ON JEANA MIDLINE WITH IVF D5 1/2 NS @60.HR, SAFETY MEASURES FOLLOWED. WILL CONT TO MONITOR.
[2021-11-19 08:00] VITALS: BP 125/62
[2021-11-19 08:38] LABS: IRON, SERUM 22 ug/dl (50-175); TOTAL IRON BINDING CAPACITY 116 ug/dl (250-450)
[2021-11-19 08:52] LABS: CHOLESTEROL 98 mg/dL (<200); FERRITIN 522 ng/mL (8-388); HDL CHOLESTEROL 12 mg/dL (40-60); LDL 21 mg/dL (0-99); TRIGLYCERIDES 213 mg/dL (30-150)
[2021-11-19] MEDS: BLOOD SUGAR DIAGNOSTIC 1 EACH STRIP IN SCH ×4 (08:59→22:11)
[2021-11-19] MEDS: FLUTICASONE PROPIONATE 16 GM BOTTLE NS SCH (09:00)
[2021-11-19] MEDS: SERTRALINE HCL 50 MG TABLET PO SCH (09:00)
[2021-11-19] MEDS: HEPARIN SODIUM, PORCINE 5000 UNITS/1 ML VIAL SQ SCH ×2 (09:00→21:00)
[2021-11-19] MEDS ORDERED: POTASSIUM PHOSPHATE MM 15 MMOL in IV NS 0.9% 250 ML IV SCH (09:00)
[2021-11-19] MEDS: ASPIRIN 81 MG TAB.CHEW PO SCH (09:00)
[2021-11-19] MEDS: CARBIDOPA/LEVODOPA 10/100 MG 1 UDTAB PO SCH ×3 (09:00→17:00)
[2021-11-19] MEDS: POTASSIUM CL. PREMIX PERIPHER. 50 ML IV SCH ×7 (09:07→18:08)
--- NOTE | 2021-11-19 09:35 | NUR ---
WOUND CARE CONSULT: PT HAVING PROCEDURE AT THIS TIME. REVIEWED CHART, NURSING DOCUMENTATION AND PHOTOS WHICH INDICATE SACRAL INTACT DEEP TISSUE INJURY WHICH EXTENDS TO BUTTOCKS AND RASH/REDNESS TO GROIN FOLDS/PERINEAL AREA, PRESENT ON ADMISSION. RECOMMENDATIONS MADE FOR SKIN PROTECTION. DISCUSSED WITH NURSING STAFF. MD IN AGREEMENT WITH PLAN OF CARE.
--- NOTE | 2021-11-19 11:48 | NUR ---
RN NOTE PT HGB LVL 7. HEPARIN AM DOSE HELD PER MD ORDER.
[2021-11-19 12:00] VITALS: BP 99/58
--- NOTE | 2021-11-19 15:17 | NUR ---
RN NOTE PT FAMILY PRESENT AT BEDSIDE. AND INFORMED DUST COLLECTOR TO HOLD OFF BLOOD TRANSFUSION FOR NOW AND FAMILY WILL DISCUSS ABOUT IT.
[2021-11-19] MEDS ORDERED: PHENOL/SODIUM PHENOLATE 1 BOTTLE MM PRN (15:30)
[2021-11-19] MEDS: IV NS 0.9% 1,000 ML IV PRN (15:41)
[2021-11-19 16:00] VITALS: BP 113/83
[2021-11-19] MEDS: CLOTRIMAZOLE 1% 15 GM TUBE TP SCH (18:09)
--- NOTE | 2021-11-19 19:22 | NUR ---
RN NOTE PT RECEIVED ASLEEP IN BED, RESPONSIVE TO STIMULI. IN ROOM AIR. NOT IN RESPI DISTRESS. PT NOTED WITH BILATERAL SOFT WRIST RESTRAINTS, NO SS OF CIRCULATORY IMPAIRMENT. CONT IN NPO STATUS. NGT REMOVED, NO N/V NOTED THIS SHIFT. PT WITH IV ACCESS ON JEANA MIDLINE WITH IVF D5 1/2 NS @60.HR, SAFETY MEASURES FOLLOWED.DUE MEDICATIONS GIVEN. WILL CONT TO MONITOR.
--- NOTE | 2021-11-19 19:35 | NUR ---
RN OPENING NOTES RECEIVED PATIENT IN BED, A/O X 1-2 AND RESPONSIVE TO PAINFUL STIMULI. ON ROOM AIR AND PT TOLERATED WELL. IV ACCESS ON JEANA MIDLINE AND RIGHT WRIST INTACT AND PATENT. NO S/S OF INFILTRATION NOTED. RUNNING NS @100ML/HR. NGT REMOVED. NO FACIAL GRIMACING NOTED. NO ACUTE DISTRESS. ON BILATERAL SOFT WRIST RESTRAINT, ALL SAFETY PRECAUTION PROVIDED. BED IN LOWEST POSITION AND LOCKED. BED ALARM ON. SIDE RAILS UP X3, PLACE CALL LIGHT WITH IN REACH. WILL CONTINUE TO MONITOR
[2021-11-19 20:00] VITALS: BP 107/50
[2021-11-19] MEDS: CARBIDOPA/LEVA CR 25/100MG 1 TAB.SA PO SCH (22:00)
[2021-11-19] MEDS: TAMSULOSIN 0.4 MG CAP.SR.24H PO SCH (22:00)
[2021-11-19] MEDS: ATORVASTATIN 40 MG TABLET PO SCH (22:00)
[2021-11-19] MEDS: DONEPEZIL 5 MG TABLET PO SCH (22:00)
--- NOTE | 2021-11-19 22:01 | NUR ---
RN NOTES: HOLD HEPARIN DUE TO LOW HGB 7.0 AND HCT 20. NO S/S OF ACTIVE BLEEDING NOTED. WILL CONTINUE TO MONITOR
[2021-11-19] MEDS: INSULIN REGULAR, HUMAN 100 UNIT/ML 3 ML VIAL SQ PRN (22:11)
--- NOTE | 2021-11-19 22:12 | NUR ---
RN NOTES: PT'S BLOOD SUGAR 161. NO COVERAGE GIVEN DUE TO NPO. NO S/S OF HYPER/HYPOGLYCEMIA. WILL CONTINUE TO MONITOR
[2021-11-20] VITALS: BP 98/79
[2021-11-20] MEDS: ALBUTEROL HALF STRENGTH 1.25 MG/3 ML VIAL.NEB NEB SCH ×4 (02:02→19:52)
[2021-11-20] MEDS: IPRATROPIUM NEB FS 0.5 MG/2.5 ML AMPUL.NEB NEB SCH ×4 (02:03→19:52)
[2021-11-20 04:00] VITALS: BP 103/55
[2021-11-20] MEDS: PIPERACILLIN /TAZOBACTAM 3.375 G in IV D5W 100 ML IV SCH ×3 (04:30→21:28)
[2021-11-20] MEDS: IV NS 0.9% 1,000 ML IV PRN (06:20)
--- NOTE | 2021-11-20 06:42 | NUR ---
RN CLOSING NOTES PATIENT IN BED, SLEEPING BUT EASILY AROUSABLE, A/O X 1-2 AND RESPONSIVE TO PAINFUL STIMULI. ON ROOM AIR AND PT TOLERATED WELL. O2 SAT 96%. IV ACCESS ON JEANA MIDLINE INTACT AND PATENT. NO S/S OF INFILTRATION NOTED. RUNNING NS @100ML/HR. NO FACIAL GRIMACING NOTED. NO ACUTE DISTRESS. ON BILATERAL SOFT WRIST RESTRAINT. RELEASED Q 2 HOURS TO CHECK CIRCULATIONS. ALL IV MEDS GIVEN ORDERED. BLOOD TRANSFUSION ON HOLD DUE TO FAMILY WISH. ALL SAFETY PRECAUTION PROVIDED. BED IN LOWEST POSITION AND LOCKED. BED ALARM ON. SIDE RAILS UP X3, PLACE CALL LIGHT WITH IN REACH. WILL ENDORSE TO MORNING SHIFT NURSE.
--- NOTE | 2021-11-20 07:30 | NUR ---
RN OPENING NOTES PATIENT IN BED, A/O X 1-2 AND RESPONSIVE TO PAINFUL STIMULI. ON ROOM AIR, O2 SAT 96%. IV ACCESS ON JEANA MIDLINE INTACT AND PATENT. NO S/S OF INFILTRATION NOTED. RUNNING NS @100ML/HR. NO FACIAL GRIMACING NOTED. NO ACUTE DISTRESS. ALL IV MEDS GIVEN ORDERED. BLOOD TRANSFUSION ON HOLD DUE TO FAMILY WISH. ALL SAFETY PRECAUTION PROVIDED. BED IN LOWEST POSITION AND LOCKED. BED ALARM ON. SIDE RAILS UP X3.
[2021-11-20] MEDS: BLOOD SUGAR DIAGNOSTIC 1 EACH STRIP IN SCH ×4 (07:40→21:29)
[2021-11-20] MEDS: INSULIN REGULAR, HUMAN 100 UNIT/ML 3 ML VIAL SQ PRN ×4 (07:45→23:00)
[2021-11-20 07:50] LABS: EOSINOPHILS % (AUTO) 0.2 % (0.0-6.0); LYMPHOCYTES # (AUTO) 0.7 K/uL (0.8-4.8); LYMPHOCYTES % (AUTO) 7.4 % (20.0-44.0); MEAN CORPUSCULAR HGB CONC 33 g/dl (31.0-36.0); MEAN CORPUSCULAR VOLUME 81 fL (80-96); MONOCYTES # (AUTO) 0.6 K/uL (0.1-1.30); MONOCYTES % (AUTO) 5.8 % (2.0-12.0); NEUTROPHILS # (AUTO) 8.5 K/uL (1.8-8.9); NEUTROPHILS % (AUTO) 86.6 % (43.0-81.0); PLATELET COUNT (AUTO) 373 K/uL (150-450); RED BLOOD CELL COUNT(AUTO) 2.13 MIL/uL (4.5-6.0); WHITE BLOOD COUNT (AUTO) 9.8 K/uL (4.3-11.0)
[2021-11-20 07:54] LABS: ALANINE AMINOTRANSFERASE 418 U/L (12-78); ALBUMIN 1.5 g/dL (3.4-5.0); ALKALINE PHOSPHATASE 95 U/L (46-116); ASPARTATE AMINOTRANSFERASE 1229 U/L (15-37); BILIRUBIN,TOTAL 0.4 mg/dL (0.2-1.0); CALCIUM, SERUM 7.4 mg/dL (8.5-10.1); CARBON DIOXIDE 24 mmol/L (21-32); CHLORIDE 113 mmol/L (98-107); CREATININE 2.3 mg/dL (0.6-1.3); GLUCOSE 178 mg/dL (74-106); MAGNESIUM 2.1 mg/dL (1.8-2.4); PHOSPHORUS 2.8 mg/dL (2.5-4.9); POTASSIUM 3.5 mmol/L (3.5-5.1); SODIUM SERUM 148 mmol/L (136-145); TOTAL PROTEIN, SERUM 5.6 g/dL (6.4-8.2); UREA NITROGEN, BLOOD 66 mg/dL (7-18)
[2021-11-20 07:55] LABS: HEMATOCRIT 17 % (39-51); HEMOGLOBIN 5.7 g/dL (13.5-17.5)
[2021-11-20 08:00] VITALS: BP 99/56
[2021-11-20] MEDS: FLUTICASONE PROPIONATE 16 GM BOTTLE NS SCH (08:51)
[2021-11-20] MEDS: ASPIRIN 81 MG TAB.CHEW PO SCH (08:51)
[2021-11-20] MEDS: SERTRALINE HCL 50 MG TABLET PO SCH (08:51)
[2021-11-20] MEDS: CARBIDOPA/LEVODOPA 10/100 MG 1 UDTAB PO SCH ×3 (08:51→16:11)
[2021-11-20] MEDS: HEPARIN SODIUM, PORCINE 5000 UNITS/1 ML VIAL SQ SCH ×2 (08:52→21:00)
[2021-11-20] MEDS: CLOTRIMAZOLE 1% 15 GM TUBE TP SCH ×2 (08:52→16:11)
[2021-11-20] MEDS: IV NS 0.9% 1,000 ML IV SCH ×2 (10:35→18:10)
[2021-11-20 12:00] VITALS: BP 127/50
[2021-11-20] MEDS: MORPHINE SULFATE INJ 2 MG/ML DISP.SYRIN IV PRN (12:08)
[2021-11-20 16:00] VITALS: BP 114/48
--- NOTE | 2021-11-20 19:30 | NUR ---
EMPLOYEE BENEFITS MANAGER OPENING NOTES RECEIVED PATIENT IN BED SLEEPING BUT EASILY AROUSABLE TO TOUCH AND VOICE, A/O X1. ON ROOM AIR TOLERATING WELL. ON TELE MONITOR READING SR WITH HR OF 98. BREATHING EVEN AND UNLABORED. NO SOB OR ANY RESPIRATORY DISTRESS NOTED AT THE TIME. IV ACCESS ON JOSE MIGUEL MIDLINE INFUSING NS AT 100 ML/HR. NO SIGNS OF INFILTRATION NOTED ON SITE. ON NPO STATUS. ON BILATERAL SOFT WRISTS RESTRAINTS, NO CIRCULATION COMPROMISE, NO SKIN INTEGRITY COMPROMISE. WILL CONTINUE TO REASSESS ACCORDINGLY. ALL SAFETY MEASURES IN PLACE. CALL LIGHT WITHIN REACH, BED IN LOWEST AND LOCKED POSITION, SIDE RAILS UP X 2. WILL CONTINUE TO MONITOR PATIENT THROUGHOUT THE SHIFT. Addendum: 11/21/21 at 0655 by PETERSON PATIÑO RN B SOFT WRIST RESTRAINTS COMPLETED 11/20 0000
[2021-11-20 20:00] VITALS: BP 95/51
[2021-11-20] MEDS: DONEPEZIL 5 MG TABLET PO SCH (21:29)
[2021-11-20] MEDS: TAMSULOSIN 0.4 MG CAP.SR.24H PO SCH (21:30)
[2021-11-20] MEDS: CARBIDOPA/LEVA CR 25/100MG 1 TAB.SA PO SCH (21:30)
[2021-11-20] MEDS: ATORVASTATIN 40 MG TABLET PO SCH (21:30)
--- NOTE | 2021-11-20 22:00 | NUR ---
RN NOTE BS CHECKED AT 141 MG/DL, NO COVERAGE GIVEN. PATIENT ON STRICT NPO STATUS. ALL PO MEDS NOT GIVEN DUE TO NPO DX. IV MEDS GIVEN.
[2021-11-21] VITALS: BP 90/51
--- NOTE | 2021-11-21 00:45 | NUR ---
RN NOTE REPORTED BLOOD PRESSURE AT 90/51 TO HYDRANT SETTER DOC PAIGE. ORDERED NS 250 BOLUS X1. ORDER TAKEN AND CARRIED OUT. WILL CONT TO MONITOR.
[2021-11-21] MEDS ORDERED: IV NS 0.9% 250 ML IV ONE (01:00)
[2021-11-21] MEDS: ALBUTEROL HALF STRENGTH 1.25 MG/3 ML VIAL.NEB NEB SCH ×2 (02:04→07:05)
[2021-11-21] MEDS: IPRATROPIUM NEB FS 0.5 MG/2.5 ML AMPUL.NEB NEB SCH ×2 (02:04→07:04)
[2021-11-21 04:00] VITALS: BP 93/65
[2021-11-21] MEDS: PIPERACILLIN /TAZOBACTAM 3.375 G in IV D5W 100 ML IV SCH (05:24)
[2021-11-21] MEDS: IV NS 0.9% 1,000 ML IV SCH (05:25)
--- NOTE | 2021-11-21 06:44 | NUR ---
GLOBAL MANAGER CLOSING NOTES PATIENT REMAINS IN BED SLEEPING BUT EASILY AROUSABLE TO TOUCH AND VOICE, A/O X1. ON ROOM AIR TOLERATING WELL. ON TELE MONITOR READING SR/ AFIB CONTROLLED AT 99. BREATHING EVEN AND UNLABORED. NO SOB OR ANY RESPIRATORY DISTRESS NOTED AT THE TIME. IV ACCESS ON JOSE MIGUEL MIDLINE INFUSING NS AT 100 ML/HR. NO SIGNS OF INFILTRATION NOTED ON SITE. MAINTAINED NPO STATUS THROUGHOUT THE SHIFT. ALL SAFETY MEASURES IN PLACE. CALL LIGHT WITHIN REACH, BED IN LOWEST AND LOCKED POSITION, SIDE RAILS UP X 2. WILL ENDORSE PATIENT TO AM SHIFT NURSE.
--- NOTE | 2021-11-21 07:30 | NUR ---
telemarketing agent opening note patient is alert and oriented x1. patient is on room air tolerating well at 96%. Patient is currently on sinus rhytm on afib controlled.patient has wounds in sacrum,patient is fall risk and bed alarm on. patient is npo due to diagnosis.all safety measures in place. call light within. bed locked at lowest position. will continue to assess throughot shift
[2021-11-21 08:00] VITALS: BP 96/47
[2021-11-21] MEDS: BLOOD SUGAR DIAGNOSTIC 1 EACH STRIP IN SCH (08:09)
[2021-11-21] MEDS: ASPIRIN 81 MG TAB.CHEW PO SCH (09:00)
[2021-11-21] MEDS: CARBIDOPA/LEVODOPA 10/100 MG 1 UDTAB PO SCH (09:00)
[2021-11-21] MEDS: SERTRALINE HCL 50 MG TABLET PO SCH (09:00)
[2021-11-21] MEDS: FLUTICASONE PROPIONATE 16 GM BOTTLE NS SCH (09:00)
[2021-11-21] MEDS: HEPARIN SODIUM, PORCINE 5000 UNITS/1 ML VIAL SQ SCH (09:00)
--- NOTE | 2021-11-21 10:00 | NUR ---
waiting for ambulance to pick up driver patient
--- NOTE | 2021-11-21 10:50 | NUR ---
son at bedside
[2021-11-21] MEDS: MORPHINE SULFATE INJ 2 MG/ML DISP.SYRIN IV PRN (11:48)
--- NOTE | 2021-11-21 12:00 | NUR ---
patient discharged. patient son requested to give morphine to prevent pain via transport patient stable. npo status due to diagnosis
[2021-11-22] MEDS ORDERED: ERGOCALCIFEROL (VITAMIN D 2) 50,000 UNIT CAPSULE PO SCH (09:00)
== END 2021-11-21 12:24 | DRG 871 ==
LOC: ER 13:14 → TRANSITION 18:30 → TELE-TD 21:31 → TELE1 11-19 14:32
PROVIDERS: ADMIT Internal Medicine; ATTEND Student in an Organized Health Care Education/Training Program
PROC: 05HB33Z Insertion of Infusion Device into Right Basilic Vein, Percutaneous Approach (ICD-10-PCS; principal; 2021-11-17)
DX: A41.9 Sepsis, unspecified organism (principal); E43 Unspecified severe protein-calorie malnutrition; I21.A1 Myocardial infarction type 2; N17.0 Acute kidney failure with tubular necrosis; G93.41 Metabolic encephalopathy; N13.6 Pyonephrosis; K55.9 Vascular disorder of intestine, unspecified; E87.2 Acidosis; K56.609 Unspecified intestinal obstruction, unspecified as to partial versus complete obstruction; E87.1 Hypo-osmolality and hyponatremia; D68.9 Coagulation defect, unspecified; N39.0 Urinary tract infection, site not specified; J98.11 Atelectasis; Q62.39 Other obstructive defects of renal pelvis and ureter; R65.20 Severe sepsis without septic shock; Z20.822 Contact with and (suspected) exposure to COVID-19; E11.9 Type 2 diabetes mellitus without complications; F02.80 Dementia in other diseases classified elsewhere, unspecified severity, without behavioral disturbance, psychotic disturbance, mood disturbance, and anxiety; G20 Parkinson's disease; E78.00 Pure hypercholesterolemia, unspecified; Z85.46 Personal history of malignant neoplasm of prostate; Z66 Do not resuscitate; Z51.5 Encounter for palliative care; G89.29 Other chronic pain; Z88.8 Allergy status to other drugs, medicaments and biological substances; Z79.51 Long term (current) use of inhaled steroids; Z79.84 Long term (current) use of oral hypoglycemic drugs; Z79.82 Long term (current) use of aspirin; Z79.899 Other long term (current) drug therapy; D63.8 Anemia in other chronic diseases classified elsewhere; E78.5 Hyperlipidemia, unspecified; E88.09 Other disorders of plasma-protein metabolism, not elsewhere classified; F32.A Depression, unspecified; K63.89 Other specified diseases of intestine; Z90.79 Acquired absence of other genital organ(s); Z85.47 Personal history of malignant neoplasm of testis; D50.0 Iron deficiency anemia secondary to blood loss (chronic); I10 Essential (primary) hypertension; N40.0 Benign prostatic hyperplasia without lower urinary tract symptoms; Z87.440 Personal history of urinary (tract) infections; Z92.3 Personal history of irradiation
CPT/HCPCS: 36415; 71045-TC; 76770-TC; 80048-TC; 80053-TC; 80061-TC; 80076-TC; 81001; 82728-TC; 82962-TC; 83540-TC; 83605-TC; 83690-TC; 83735-TC; 84100-TC; 84484-TC; 85025-TC; 85730-TC; 86803; 86850-TC; 87040-TC; 87081-TC; 87086-TC; 87806; 93307-TC; 93971-TC; 94799-TC; C9803; G0378; J0692; J1644; J2270; J2543; J3230; J3370; J3480; J3490; J7030; J7050; J7060; Q9967